=== PATIENT | female | born 2000 | race Caucasian/White ===

== ENCOUNTER 2023-10-01 07:59 | Emergency (ER) | payer SELFPAY ==
[2023-10-01 08:05] VITALS: BP 101/64; PULSE 73; RESP 18; TEMP 36.7; O2SAT 98; BMI 22.8
[2023-10-01 08:37] LABS: Add Urine Microscopic? NO; Charge for UA Resulting for Rev
--- NOTE | 2023-10-01 08:40 | ED_ITS ---
HPI - Abdominal Pain 2 General: Chief Complaint: Abdominal Pain Stated Complaint: abd pain Time Seen by Provider: 10/01/23 08:25 Source: patient Mode of arrival: ambulatory History of Present Illness: 22-year-old female presents emergency ro om with onset of abdominal pain that began yesterday. States pain is better if she sits very still. She has noticed onset of very dark stools. She complains of most of her pain in the left upper quadrant she does not not regularly drink alcohol no history of GI bleed she does not take frequent NSAIDs. Her only previous surgery was remote appendectomy when she was very young she had a couple of vaginal deliveries and previously had an IUD which she self removed. She does not believe she might be . She denies any dysuria urgency or frequency no hematochezia no hematuria no history of kidney stones. MD elicited complaint: abdominal pain Associated Symptoms: Denies chills, dysuria and fever(s) Review of Systems 2 Const: Denies: fever(s) or chills Card: Denies: chest pain Resp: Denies: dyspnea GI: Denies: abdominal pain : Denies: dysuria, urinary frequency or urinary urgency Musc: Denies: neck pain or back pain Skin/Breast: Denies: rash Physical Exam 2 Const: GENERAL APPEARANCE: cooperative and comfortable O RIENTATION/CONSCIOUSNESS: Yes awake, Yes oriented to person, Yes oriented to place and Yes oriented to time HENMT: COMMON NORMALS: normocephalic, atraumatic and hearing grossly normal bilaterally HEAD & SCALP: normocephalic and atraumatic Resp: COMMON NORMALS: normal respiratory effort, No retractions, No use of accessory muscles and clear to auscultation bilaterally AUSCULTATION: clear to auscultation bilaterally Cardio: COMMON NORMALS: regular rate, regular rhythm and No murmurs present (Cardio) RATE: regular rate RHYTHM: regular rhythm GI: COMMON NORMALS: No hepatosplenomegaly present AUSCULTATION: Yes normoactive bowel sounds PALPATION: Yes Tenderness to palpation present (GI) Details: LUQ, No Guarding due to palpation present (GI) and Yes No hepatosplenomegaly present Extremity: COMMON NORMALS: normal to inspection, capillary refill normal, no clubbing, cyanosis or edema, no calf tenderness and no pedal edema Neuro: SENSORIUM/ORIENTATION: Yes oriented to person, Yes oriented to place and Yes oriented to time Skin: COMMON NORMALS: no rashes or lesions noted GENERAL SKIN EXAM: no rashes or lesions noted Course 2 Vital Signs: Vital signs: Vital Signs Temperature 98.1 F 10/01/23 08:05 Pulse Rate 73 10/01/23 08:05 Respiratory Rate 20 H 10/01/23 09:30 Blood Pressure 101/64 10/01/23 08:05 Pulse Oximetry 98 10/01/23 09:30 MDM - Abdominal Pain Medical Decision Making Rectal exam was done Hemoccult negative she has some hemorrhoidal tags but nothing that send plan. Bleeding at this time. Will discharge the patient home diclofenac hydrocodone for the pain I think the fluid in the abdomen is secondary to a ruptured ovarian cyst labs are otherwise unremarkable. Urine was negative and urine was negative. Follow-up with primary care if not improving Medical Records I reviewed the patient's medical records. Lab Data I reviewed the patient's lab results. 10/01/23 08:43 10/01/23 08:43 Labs/Radiology: Radiology Impressions Abdomen/Pelvis CT 10/01/23 08:47 IMPRESSION: 1. There is a moderate amount of free intraperitoneal fluid in the pelvis. Free pelvic peritoneal fluid, greater than physiologic amounts. Pattern is nonspecific however can be seen with a recently ruptured ovarian cyst, enteritis, or other acute abdominal/pelvic process. 2. The appendix is not completely visualized and acute appendicitis cannot be excluded. 3. There is a 15 mm cystic lesion likely representing a [place]'s gland cyst. There is some internal complexity within the cyst and infection is a possibility. Laboratory Results WBC 5.64 10^3/uL (3.29-11.43) 10/01/23 08:43 RBC 4.55 10^6/uL (3.85-5.65) 10/01/23 08:43 Hgb 13.80 g/dL (11.27-16.99) 10/01/23 08:43 Hct 40.5 % (36-47) 10/01/23 08:43 MCV 89.0 fl (85-98) 10/01/23 08:43 MCH 30.3 pg (27-33) 10/01/23 08:43 MCHC 34.1 g/dL (30-55) 10/01/23 08:43 RDW 12.1 % (12.1-15.1) 10/01/23 08:43 Plt Count 140 10^3/cmm (157-399) L 10/01/23 08:43 MPV 10.3 fL (7.4-10.4) 10/01/23 08:43 Neut % (Auto) 61.2 % 10/01/23 08:43 Lymph % (Auto) 25.5 % 10/01/23 08:43 [place] % (Auto) 6.9 % 10/01/23 08:43 Eos % (Auto) 5.3 % 10/01/23 08:43 Baso % (Auto) 0.7 % 10/01/23 08:43 Neut # (Auto) 3.45 10^3/uL (1.8-7.7) 10/01/23 08:43 Lymph # (Auto) 1.4 10^3/uL (0.8-4.8) 10/01/23 08:43 [place] # (Auto) 0.4 10^3/uL (0.2-0.9) 10/01/23 08:43 Eos # (Auto) 0.3 10^3/uL (0.0-0.8) 10/01/23 08:43 Baso # (Auto) 0.0 10^3/uL (0.0-0.1) 10/01/23 08:43 Nucleated RBC % (auto) 0 % 10/01/23 08:43 Nucleated RBCs # 0.0 /100WBC 10/01/23 08:43 Sodium 139 mmol/L (136-145) 10/01/23 08:43 Potassium 3.9 mmol/L (3.5-5.1) 10/01/23 08:43 Chloride 105 mmol/L (98-107) 10/01/23 08:43 Carbon Dioxide 22 mmol/L (22-29) 10/01/23 08:43 Anion Gap 15.9 (5-19) 10/01/23 08:43 BUN 9 mg/dL (6-20) 10/01/23 08:43 Creatinine 0.6 mg/dL (0.5-0.9) 10/01/23 08:43 GFR Calculation 125.0 mL/min (90-130) 10/01/23 08:43 Glucose 97 mg/dL (65-115) 10/01/23 08:43 Calculated Osmolality 287 mOsm/kg (285-295) 10/01/23 08:43 Calcium 9.0 mg/dL (8.5-10.5) 10/01/23 08:43 Total Bilirubin 0.5 mg/dL (0.15-1.2) 10/01/23 08:43 AST 20 U/L (0-32) 10/01/23 08:43 ALT 19 U/L (0-33) 10/01/23 08:43 Alkaline Phosphatase 71 U/L (35-105) 10/01/23 08:43 Total Protein 7.5 g/dL (6.6-8.7) 10/01/23 08:43 Albumin 4.6 g/dL (3.5-5.2) 10/01/23 08:43 Globulin 2.9 g/dL (1.3-4.6) 10/01/23 08:43 Lipase 14 U/L (13-60) 10/01/23 08:43 HCG, Qual Negative (Negative) 10/01/23 08:43 Urine Color Yellow (Yellow) 10/01/23 08:33 Urine Appearance Clear (CLEAR) 10/01/23 08:33 Urine pH 7 (5-7) 10/01/23 08:33 Ur Specific [place] 1.010 (1.005-1.030) 10/01/23 08:33 Urine Protein Neg (Negative) 10/01/23 08:33 Urine Glucose (UA) Norm (Normal) 10/01/23 08:33 Urine Ketones Negative (Negative) 10/01/23 08:33 Urine Blood Neg (Negative) 10/01/23 08:33 Urine Nitrate Negative (Negative) 10/01/23 08:33 Urine Bilirubin Neg (Negative) 10/01/23 08:33 Urine Urobilinogen Norm mg/dL (Negative) 10/01/23 08:33 Ur Leukocyte Esterase Negative (Negative) 10/01/23 08:33 All radiology interpretation(s) finalized by discharge Discharge Plan Discharge Patient Disposition: Home Clinical Impression: Ovarian cyst Condition: Stable Prescriptions: New hydrocodone-acetaminophen 5-325 mg tablet 1 tab PO Q6H PRN (Reason: pain) Qty: 15 0RF diclofenac sodium 75 mg tablet,delayed release (DR/EC) 75 mg PO Q12H PRN (Reason: pain) Qty: 20 0RF Discharge Orders: Discharge ED (Routine); Ordered 10/01/23 Ordered By: Reji Almanzar Discharge Diet: Usual diet Discharge Activity: Increase activity as tolerated Patient Instructions: Opioid Safety, Pain Management Activity Restrictions/Additional Instructions: Thank you for choosing [facility] for your healthcare needs today. It is very important that you follow up as instructed or that you return to the Emergency Department should you have concerns or if your condition changes or worsens in any way. You were seen today with complaints of left-sided abdominal pain. CT showed fluid in the abdomen likely from an ovarian cyst otherwise is unremarkable your laboratory tests are unremarkable. You can use diclofenac or the hydrocodone as needed for pain. Also recommend getting [id number]-yffaxew Pepcid 1 pill twice a day for 7 to 10 days if symptoms persist follow-up with your primary care doctor Coding Level of Care Code ED Maternal Fetal Physician for Chivo De La Rosa
--- NOTE | 2023-10-01 08:47 | CTR_ITS ---
PROCEDURE INFORMATION: Exam: CT Abdomen And Pelvis With Contrast Exam date and time: 10/01/2023 9:16 AM Age: 22 years old Clinical indication: Abdominal pain; TECHNIQUE: Imaging protocol: Computed tomography of the abdomen and pelvis with contrast. Radiation optimization: All CT scans at this facility use at least one of these dose optimization techniques: automated exposure control; mA and/or kV adjustment per patient size (includes targeted exams where dose is matched to clinical indication); or iterative reconstruction. Contrast material: OMNI 350; Contrast volume: 100 ml; Contrast route: INTRAVENOUS (IV); COMPARISON: No relevant prior studies available. RADIATION DOSE METRICS: Total DLP (mGy-cm): 336.98 FINDINGS: Liver: Normal. No mass. Gallbladder and biliary ducts: Normal. No calcified stones. No ductal dilation. Pancreas: Normal. No ductal dilation. Spleen: Normal. No splenomegaly. Adrenal glands: Normal. No mass. Kidneys and ureters: Normal. No hydronephrosis. Stomach and bowel: Unremarkable. No obstruction. No mucosal thickening. Appendix: I believe portions of the appendix are visualized on axial series 3 images 56 through 59 however the entirety the appendix is not visualized. Acute appendicitis cannot be excluded. Intraperitoneal space: There is a moderate amount of free intraperitoneal fluid in the pelvis and right abdomen. Vasculature: Unremarkable. No abdominal aortic aneurysm. Lymph nodes: Unremarkable. No enlarged lymph nodes. Urinary bladder: Unremarkable as visualized. Reproductive: The right adnexa is obscured by free fluid and not well seen. Bones/joints: Unremarkable. No acute fracture. Soft tissues: Unremarkable. Other findings: 15 mm cyst with some internal complexity positioned along the lateral margin of the external urethral meatus likely represent a [place]'s gland cyst. CT/CT abdomen pelvis w con* [id number] IMPRESSION: 1. There is a moderate amount of free intraperitoneal fluid in the pelvis. Free pelvic peritoneal fluid, greater than physiologic amounts. Pattern is nonspecific however can be seen with a recently ruptured ovarian cyst, enteritis, or other acute abdominal/pelvic process. 2. The appendix is not completely visualized and acute appendicitis cannot be excluded. 3. There is a 15 mm cystic lesion likely representing a [place]'s gland cyst. There is some internal complexity within the cyst and infection is a possibility.
[2023-10-01 08:52] LABS: Bilirubin Urine Neg (Negative); Blood Urine Neg (Negative); Glucose Urine UA Norm (Normal); Ketones Urine Negative (Negative); Leukocyte Esterase Urine Negative (Negative); Nitrate Urine Negative (Negative); Protein Urine Neg (Negative); Urine Appearance Clear (CLEAR); Urine Color Yellow (Yellow); Urobilinogen Urine Norm (Negative); pH Urine 7 (5-7)
[2023-10-01 08:56] LABS: Basophils % 0.7 %; Eosinophils # 0.3 10^3/uL (0.0-0.8); Eosinophils % 5.3 %; Hematocrit 40.5 % (36-47); Lymphocytes # 1.4 10^3/uL (0.8-4.8); Lymphocytes % 25.5 %; Mean Corpuscular HGB Conc 34.1 g/dL (30-55); Mean Corpuscular Hemoglobin 30.3 pg (27-33); Mean Platelet Volume 10.3 fL (7.4-10.4); Monocytes # 0.4 10^3/uL (0.2-0.9); Monocytes % 6.9 %; Neutrophils # 3.45 10^3/uL (1.8-7.7); Neutrophils % 61.2 %; Nucleated Red Blood Cells % 0 %; Platelet Count 140 10^3/cmm (157-399); Red Blood Count 4.55 10^6/uL (3.85-5.65); Red Cell Distribution Width 12.1 % (12.1-15.1); White Blood Count 5.64 10^3/uL (3.29-11.43)
[2023-10-01 09:10] VITALS: O2SAT 98
[2023-10-01 09:12] LABS: Alanine Aminotransferase 19 U/L (0-33); Albumin Level 4.6 g/dL (3.5-5.2); Alkaline Phosphatase 71 U/L (35-105); Anion Gap 15.9 (5-19); Aspartate Amino Transferase 20 U/L (0-32); Blood Urea Nitrogen 9 mg/dL (6-20); Carbon Dioxide 22 mmol/L (22-29); Chloride 105 mmol/L (98-107); Creatinine Clr Calc Pharmacy 122.4487; Globulin 2.9 g/dL (1.3-4.6); Glucose 97 mg/dL (65-115); Lipase 14 U/L (13-60); Osmolality Calculated 287 mOsm/kg (285-295); Potassium 3.9 mmol/L (3.5-5.1); Sodium 139 mmol/L (136-145); Total Bilirubin 0.5 mg/dL (0.15-1.2); Total Protein 7.5 g/dL (6.6-8.7)
[2023-10-01 09:13] LABS: HCG, Serum Qual Negative (Negative)
[2023-10-01] MEDS: iohexol 350 mg/mL 500 mL Btl (per mL) IV (09:19)
[2023-10-01 09:30] VITALS: RESP 20; O2SAT 98
[2023-10-01] MEDS: morphine 4 mg/mL SDV 1 mL IVP (09:30)
== END 2023-10-01 11:15 | disposition home or self-care (01) ==
PROVIDERS: Emergency Provider Family Medicine
DX: N83.209 Unspecified ovarian cyst, unspecified side (principal)
CPT/HCPCS: 74177; 80053; 81003; 83690; 84703; 85025; 96374; 99285; J2270; Q9967

== ENCOUNTER → 2024-07-25 15:02 | Outpatient (BNVA) | payer OTHER, SELFPAY | PROVIDERS: Visit Provider Psychiatry & Neurology Psychiatry | DX: F33.2 Major depressive disorder, recurrent severe without psychotic features (principal); Z79.899 Other long term (current) drug therapy | CPT/HCPCS: 84443 ==

== ENCOUNTER 2024-09-10 10:56 | Inpatient (IN) | payer SELFPAY ==
[2024-09-10 10:59] VITALS: BP 107/70; PULSE 90; RESP 16; TEMP 36.7; O2SAT 97; BMI 20.5
--- NOTE | 2024-09-10 11:01 | ED.C_ITS ---
HPI - Psych 2 General: Chief Complaint: Psychiatric Symptoms Stated Complaint: MHE Time Seen by Provider: 09/10/24 10:59 Source: patient Mode of arrival: ambulatory Limitations: no limitations History of Present Illness: Patient is a 23-year-old female presents to ED today from the crisis center. Patient states she is having thoughts of suicide with a plan to overdose on her sleeping medications. Patient reports 23 previous hospitalizations for psychiatric reasons but states none since the age of 18. She does receive psychiatric care at [facility] with Dr. Poole. complaint: suicidal ideation and feels depressed Onset (ago): day(s) Duration: constant Relieving factors: none Exacerbating factors: none Associated psychiatric symptoms: depression and suicidal ideation Associated symptoms: Reports depression and suicidal ideation; Deny auditory hallucinations, visual hallucinations or homicidal ideation Treatments prior to arrival: none If self harm: admits thoughts of self harm and has plan Related Data Previous Rx's ?Medication ?Instructions ?Recorded hydroxyzine HCl 50 mg tablet 100 mg (2 x 50 mg) PO .HS PRN 09/06/24 insomnia #60 tabs Allergies Allergy/AdvReac Type Severity Reaction Status Date / Time No Known Allergies Allergy Verified 09/06/24 10:11 Review of Systems 2 Const: Denies: fever(s) or chills Card: Denies: chest pain, palpitations, lightheadedness or syncope Resp: Denies: dyspnea GI: Denies: abdominal pain, nausea, vomiting or diarrhea Skin/Breast: Denies: rash Neuro: Denies: headache(s) Psych: Reports: anxiety, depression and suicidal ideation; Denies: visual hallucinations, auditory hallucinations or homicidal ideation [facility] ED 2 PFSH: Medical History Psychiatric care Physical Exam 2 Const: COMMON NORMALS: no acute distress, average body habitus, patient oriented x3, no limitations, healthy appearing, alert and well nourished G ENERAL APPEARANCE: cooperative and well kempt Resp: COMMON NORMALS: normal respiratory effort and clear to auscultation bilaterally AUSCULTATION: clear to auscultation bilaterally Cardio: COMMON NORMALS: regular rate and regular rhythm RATE: regular rate RHYTHM: regular rhythm Neuro: COMMON NORMALS: patient oriented x3, moves all extremities, no focal motor deficits and no sensory deficits noted SENSORIUM/ORIENTATION: Yes alert Psych: COMMON NORMALS: mental status grossly normal, Normal thought process present, cooperative, normal affect, speech normal, activity/motor behavior normal and denies hallucinations APPEARANCE: Yes grossly normal and Yes well kempt ATTITUDE: Yes calm ACTIVITY/MOTOR BEHAVIOR: Yes appropriate eye contact and No psychomotor agitation SPEECH: Yes normal speech MOOD & AFFECT: Yes euthymic mood THOUGHT PROCESS: Normal thought process present THOUGHT CONTENT: Yes Suicidality present MEMORY/COGNITION: Yes memory grossly intact and Yes cognition grossly intact INSIGHT: Fair insight present (Psych) JUDGEMENT: Fair judgement present (Psych) Course 2 Consultations: Consultation #1: Dr. Gill-accepts to NPU Vital Signs: Vital signs: Vital Signs Temperature 98.1 F 09/10/24 11:02 Pulse Rate 90 09/10/24 11:02 Respiratory Rate 16 09/10/24 10:59 Blood Pressure 107/70 09/10/24 11:02 Pulse Oximetry 97 09/10/24 11:02 Oxygen Delivery Me thod Room Air 09/10/24 11:02 [facility] - Psych Medical Decision Making Patient will be placed on a 96-hour hold. She will be admitted to NPU to Dr. Gill for further assessment. Medical Records I reviewed the patient's medical records. Lab Data I reviewed the patient's lab results. 09/10/24 11:12 09/10/24 11:12 Laboratory Results WBC 9.45 10^3/uL (3.29-11.43) 09/10/24 11:12 RBC 5.21 10^6/uL (3.85-5.65) 09/10/24 11:12 Hgb 16.20 g/dL (11.27-16.99) 09/10/24 11:12 Hct 46.6 % (36-47) 09/10/24 11:12 MCV 89.4 fl (85-98) 09/10/24 11:12 MCH 31.1 pg (27-33) 09/10/24 11:12 MCHC 34.8 g/dL (30-55) 09/10/24 11:12 RDW 12.3 % (12.1-15.1) 09/10/24 11:12 Plt Count 196 10^3/cmm (157-399) 09/10/24 11:12 MPV 10.2 fL (7.4-10.4) 09/10/24 11:12 Neut % (Auto) 64.5 % 09/10/24 11:12 Lymph % (Auto) 25.3 % 09/10/24 11:12 [place] % (Auto) 5.8 % 09/10/24 11:12 Eos % (Auto) 3.5 % 09/10/24 11:12 Baso % (Auto) 0.7 % 09/10/24 11:12 Neut # (Auto) 6.09 10^3/uL (1.8-7.7) 09/10/24 11:12 Lymph # (Auto) 2.4 10^3/uL (0.8-4.8) 09/10/24 11:12 [place] # (Auto) 0.6 10^3/uL (0.2-0.9) 09/10/24 11:12 Eos # (Auto) 0.3 10^3/uL (0.0-0.8) 09/10/24 11:12 Baso # (Auto) 0.1 10^3/uL (0.0-0.1) 09/10/24 11:12 Nucleated RBC % (auto) 0 % 09/10/24 11:12 Nucleated RBCs # 0.0 /100WBC 09/10/24 11:12 Sodium 141 mmol/L (136-145) 09/10/24 11:12 Potassium 4.0 mmol/L (3.5-5.1) 09/10/24 11:12 Chloride 104 mmol/L (98-107) 09/10/24 11:12 Carbon Dioxide 23 mmol/L (22-29) 09/10/24 11:12 Anion Gap 18.0 (5-19) 09/10/24 11:12 BUN 14 mg/dL (6-20) 09/10/24 11:12 Creatinine 0.8 mg/dL (0.5-0.9) 09/10/24 11:12 GFR Calculation 88.9 mL/min (90-130) L 09/10/24 11:12 Glucose 81 mg/dL (65-115) 09/10/24 11:12 Calculated Osmolality 292 mOsm/kg (285-295) 09/10/24 11:12 Calcium 9.7 mg/dL (8.5-10.5) 09/10/24 11:12 Total Bilirubin 0.9 mg/dL (0.15-1.2) 09/10/24 11:12 AST 20 U/L (0-32) 09/10/24 11:12 ALT 19 U/L (0-33) 09/10/24 11:12 Alkaline Phosphatase 62 U/L (35-105) 09/10/24 11:12 Total Protein 8.3 g/dL (6.6-8.7) 09/10/24 11:12 Albumin 5.3 g/dL (3.5-5.2) H 09/10/24 11:12 Globulin 3.0 g/dL (1.3-4.6) 09/10/24 11:12 HCG, Qual Negative (Negative) 09/10/24 11:12 Salicylates < 0.3 mg/dL (3-10) L 09/10/24 11:12 Acetaminophen < 5.0 ug/mL (10-30) L 09/10/24 11:12 Ethyl Alcohol < 10 mg/dL (0-10) 09/10/24 11:12 No radiology studies performed this visit Discharge Plan Discharge Patient Disposition: Admitted As Inpatient Clinical Impression: Suicidal ideation Condition: Stable Coding Level of Care Code ED Identity Management Consultant for Chivo De La Rosa
[2024-09-10 11:02] VITALS: BP 107/70; PULSE 90; TEMP 36.7; O2SAT 97
[2024-09-10 11:28] LABS: Basophils # 0.1 10^3/uL (0.0-0.1); Basophils % 0.7 %; Eosinophils # 0.3 10^3/uL (0.0-0.8); Eosinophils % 3.5 %; Hematocrit 46.6 % (36-47); Lymphocytes # 2.4 10^3/uL (0.8-4.8); Lymphocytes % 25.3 %; Mean Corpuscular HGB Conc 34.8 g/dL (30-55); Mean Corpuscular Hemoglobin 31.1 pg (27-33); Mean Corpuscular Volume 89.4 fl (85-98); Mean Platelet Volume 10.2 fL (7.4-10.4); Monocytes # 0.6 10^3/uL (0.2-0.9); Monocytes % 5.8 %; Neutrophils # 6.09 10^3/uL (1.8-7.7); Neutrophils % 64.5 %; Nucleated Red Blood Cells % 0 %; Platelet Count 196 10^3/cmm (157-399); Red Blood Count 5.21 10^6/uL (3.85-5.65); Red Cell Distribution Width 12.3 % (12.1-15.1); White Blood Count 9.45 10^3/uL (3.29-11.43)
[2024-09-10 11:45] LABS: Alanine Aminotransferase 19 U/L (0-33); Albumin Level 5.3 g/dL (3.5-5.2); Alkaline Phosphatase 62 U/L (35-105); Aspartate Amino Transferase 20 U/L (0-32); Blood Urea Nitrogen 14 mg/dL (6-20); Calcium 9.7 mg/dL (8.5-10.5); Carbon Dioxide 23 mmol/L (22-29); Chloride 104 mmol/L (98-107); Creatinine Clr Calc Pharmacy 94.2572; Glomerular Filtration Rate 88.9 mL/min (90-130); Glucose 81 mg/dL (65-115); Osmolality Calculated 292 mOsm/kg (285-295); Sodium 141 mmol/L (136-145); Total Bilirubin 0.9 mg/dL (0.15-1.2); Total Protein 8.3 g/dL (6.6-8.7)
[2024-09-10 11:48] LABS: Acetaminophen < 5.0 ug/mL (10-30); Alcohol Level < 10 mg/dL (0-10); Salicylate < 0.3 mg/dL (3-10)
[2024-09-10 11:51] LABS: HCG, Serum Qual Negative (Negative)
[2024-09-10 12:30] LABS: Amphetamines Screen Urine Negative (Negative); Barbiturates Screen Urine Negative (Negative); Cocaine Screen Urine Negative (Negative); PCP Screen Urine Negative (Negative); THC Screen Urine Positive (Negative)
[2024-09-10 12:31] LABS: Benzodiazepines Screen Urine Negative (Negative); Opiate Screen Urine Negative (Negative)
--- NOTE | 2024-09-10 12:34 | PC.NURSE ---
96 hr rights reviewed with pt @[id number] with assistance of [facility] cyber security specialist Edward Hernandez. All education reviewed at this time. No questions for HS verbalized by pt when asked. Pt copy was left @bedside with pt. Pt provided a soda and a sandwich. No further needs
[2024-09-10 12:36] VITALS: PULSE 68; O2SAT 99
[2024-09-10 12:53] VITALS: BP 135/80; PULSE 80; RESP 18; TEMP 36.9; O2SAT 98
[2024-09-10 14:00] VITALS: BP 99/61; PULSE 70; RESP 16; O2SAT 97
[2024-09-10 19:40] VITALS: BP 97/53; PULSE 64; RESP 16; TEMP 36.7; O2SAT 98
[2024-09-10] MEDS: hyDROXYzine 25 mg Capsule 50 MG PO (20:30)
[2024-09-11 06:00] VITALS: BP 97/56; PULSE 96; RESP 16; TEMP 36.9; O2SAT 97
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
[2024-09-11] MEDS: buPROPion XL (24 HR) 150 mg Tablet PO (12:55)
[2024-09-11] MEDS: hyDROXYzine 25 mg Capsule 50 MG PO (13:28)
[2024-09-11] MEDS: nicotine 2 mg Gum BUCCAL ×2 (13:31→18:57)
[2024-09-11 14:00] VITALS: BP 107/69; PULSE 74; RESP 18; TEMP 36.8; O2SAT 97
[2024-09-11] MEDS: nicotine 4 mg lozenge MUCOUS MEM (15:46)
[2024-09-11 19:41] VITALS: BP 99/71; PULSE 99; RESP 16; TEMP 36.9; O2SAT 97
[2024-09-11] MEDS: trazodone 50 mg Tablet PO (20:07)
[2024-09-11] MEDS: hyDROXYzine 25 mg Capsule 100 MG PO (20:07)
[2024-09-12 06:00] VITALS: BP 84/49; PULSE 78; RESP 16; TEMP 36.8; O2SAT 97
[2024-09-12] MEDS: nicotine 2 mg Gum BUCCAL ×7 (06:46→19:21)
[2024-09-12] MEDS: buPROPion XL (24 HR) 150 mg Tablet PO (08:20)
[2024-09-12] MEDS: hyDROXYzine 25 mg Capsule 50 MG PO (12:56)
[2024-09-12 14:00] VITALS: BP 97/58; PULSE 70; RESP 18; TEMP 37.1; O2SAT 99
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
[2024-09-12] MEDS: trazodone 50 mg Tablet PO (20:03)
[2024-09-12] MEDS: hyDROXYzine 25 mg Capsule 100 MG PO (20:03)
[2024-09-12 20:44] VITALS: BP 92/56; PULSE 72; RESP 14; TEMP 36.8; O2SAT 97
[2024-09-13 06:00] VITALS: BP 90/50; PULSE 77; RESP 16; O2SAT 98
[2024-09-13] MEDS: nicotine 2 mg Gum BUCCAL ×7 (06:07→20:47)
[2024-09-13] MEDS: buPROPion XL (24 HR) 150 mg Tablet PO (08:14)
--- NOTE | 2024-09-13 11:48 | P.NPUPN_ITS ---
Subjective NPU 2 Subjective: Patient presented today reporting that things are going well. She feels much better and we were in agreement that holding on any Abilify or other mood stabilizer would be the appropriate approach at this time. We agreed that getting her to an outpatient team in them working on the possibilities moving forward would be the next appropriate moved. We discussed the risks, benefits and alternatives of planning for discharge in the morning and she understood and agreed to proceed as is documented in this note. Mental Status Exam 2 MSE Comments: This is a slender but well developed white female with hospital scrubs along with adequate grooming and eye contact. No abnormal movements except for mild psychomotor retardation. Cooperative with exam and in mild distress. Speech was decreased rate and volume. Mood described as feeling a little better, affect congruent. Thought process organized. Thought content: Patient denied current suicidal or homicidal ideation, no delusions reported or noted, she denied any auditory or visual hallucinations. Considered taking a large amount of sleeping pills but decided against it after discussing with her . Reports difficulty sleeping through the night despite going to bed at 8 PM and waking up at 5:30-6:00 AM. Stressors include 's mental health struggles and recovery from a foot injury. Attention and concentration were intact and memory appeared mostly reliable but none were formally tested. She is alert and oriented x 3. Insight and judgment appear fair. Impulse control limited. Vitals/I&O/Wt Last Vital Signs Temp 98.2 F 09/12/24 20:44 Pulse 77 09/13/24 06:00 Resp 16 09/13/24 06:00 BP 90/50 09/13/24 06:00 Pulse Ox 98 09/13/24 06:00 O2 Del Method Room Air 09/12/24 06:00 Data NPU 09/10/24 11:12 09/10/24 11:12 A&P Assessment and plan (1) Major depressive disorder, recurrent severe without psychotic features: (2) Generalized anxiety disorder: (3) Post-traumatic stress disorder, chronic: (4) Cannabis use disorder, moderate, dependence: (5) Methamphetamine abuse in remission: (6) Suicidal ideation: Plan This is a 23-year-old white female with a long history of mental health issues going back to her childhood but she had maybe as many as 23 hospitalizations but she did not have any significant treatment after age 18. The patient is experiencing suicidal ideation and has expressed a desire to alleviate these thoughts. There is a history of mental health struggles, including previous inpatient psychiatric treatment and medication use, which ceased at age 18. The patient is open to trying a mood stabilizer and has been on various medications in the past, including Remeron, clonidine, Focalin, trazodone, Latuda, Prozac, and Abilify. The patient is currently taking Vistaril for sleep issues. The patient has been feeling bad about themselves and has been struggling with their mental health, which has led to the current hospitalization. 1. Continue current medication. Started Wellbutrin XL 150 mg p.o. daily. With positive response we will hold on Abilify and allow outpatient team to consider gets necessity at a later time. 2. Continue every 15 minute checks for safety. 3. Encourage individual, group and milieu therapies. 4. Obtain collateral information. PDMP PDMP Reviewed: Not Reviewed Involuntary Hold Information 2 Hold Status: Legal Status: 96 Hour Hold Date/Time Hold Expires: 09/14/2024 @ 1158 Attestations NPU 2 Medical Necessity Statement*: Inpatient hospitalization is medically necessary and the clinically appropriate intervention at this time.? We will monitor/initiate medications and make changes as indicated.? The patient?s likely length of stay 1-3 days. Coding Level of Care Code Acute Code for Chg Fwd Diagnoses Major depressive disorder, recurrent severe without psychotic features F33.2 Generalized anxiety disorder F41.1 Post-traumatic stress disorder, chronic F43.12 Cannabis use disorder, moderate, dependence F12.20 Methamphetamine abuse in remission F15.11 Suicidal ideation R45.851
[2024-09-13 14:00] VITALS: BP 108/58; PULSE 73; RESP 16; TEMP 36.9; O2SAT 98
[2024-09-13] MEDS: hyDROXYzine 25 mg Capsule 50 MG PO (16:23)
[2024-09-13 19:46] VITALS: BP 98/60; PULSE 81; RESP 16; TEMP 36.7; O2SAT 99
[2024-09-13] MEDS: trazodone 50 mg Tablet PO (20:16)
[2024-09-13] MEDS: hyDROXYzine 25 mg Capsule 100 MG PO (20:16)
[2024-09-14 05:08] VITALS: BP 99/61; PULSE 78; RESP 16; TEMP 36.5; O2SAT 98
[2024-09-14] MEDS: nicotine 2 mg Gum BUCCAL ×2 (06:16→08:27)
[2024-09-14] MEDS: buPROPion XL (24 HR) 150 mg Tablet PO (08:26)
[2024-09-14 10:26] VITALS: BP 99/61; PULSE 78; RESP 16; TEMP 36.5; O2SAT 98
--- NOTE | 2024-09-14 12:07 | PC.NURSE ---
pt dc pt dc'd at this time. pt had no questions at this time. signed all paperwork, meds given, left with . pt will be called with appointment time.
== END 2024-09-14 12:08 | disposition home or self-care (01) | DRG 885 ==
LOC: ER 12:09 → NP 12:11
PROVIDERS: Admitting Provider Psychiatry & Neurology Psychiatry; Emergency Provider Physician Assistant; Visit Provider Psychiatry & Neurology Psychiatry
DX: F33.2 Major depressive disorder, recurrent severe without psychotic features (principal); R45.851 Suicidal ideations; F41.1 Generalized anxiety disorder; F43.12 Post-traumatic stress disorder, chronic; F12.20 Cannabis dependence, uncomplicated; F15.11 Other stimulant abuse, in remission
CPT/HCPCS: 36415; 80053; 80306; 80307; 84703; 85025; 97150; 97165; 99285; J9999

== ENCOUNTER 2025-01-01 13:39 | Outpatient (CLI) | payer MEDICAID, SELFPAY ==
--- NOTE | 2025-01-01 13:46 | US_ITS ---
WS: [id number] ULTRASOUND BILATERAL BREAST, limited HISTORY: NIPPLE DISCHARGE/BREAST LUMP COMPARISON: None available. TECHNIQUE: 2-D and Doppler. RIGHT breast: No dilated ducts behind the nipple. No mass identified. Normal soft tissues. LEFT breast: No dilated ducts behind the nipple. There is no mass in the 10-2 o'clock location. US/US breast BI limited* [id number] IMPRESSION: BI-RADS: 1- Negative FOLLOW-UP: See Report No duct dilatation within either breast to explain nipple discharge. No mass id entified in the LEFT breast. No further imaging follow-up necessary.
== END 2025-01-01 13:40 | disposition home or self-care (01) ==
LOC: RAD 13:42
PROVIDERS: PCP Nurse Practitioner Family; Visit Provider Nurse Practitioner Family
DX: N63.10 Unspecified lump in the right breast, unspecified quadrant (principal); N64.52 Nipple discharge
CPT/HCPCS: 76642